=== PATIENT | female | born 1945 | race Caucasian/White ===

== ENCOUNTER 2018-03-24 13:52 | Inpatient (IN) ==
[2018-03-24] MEDS ORDERED: TEMAZEPAM 15 MG CAPSULE PO PRN (14:59)
[2018-03-24] MEDS ORDERED: ONDANSETRON 4 MG/2 ML VIAL IV PRN (15:01)
[2018-03-24] MEDS ORDERED: MORPHINE 4 MG/1 ML VIAL IV PRN (15:01)
[2018-03-24 15:26] LABS: Basophils # 0.1 10*3/uL (0.0-0.2); Basophils % 0.6 % (0.0-0.8); Eosinophils # 0.1 10*3/uL (0.0-0.87); Eosinophils % 1.3 % (0.00-10.9); Hematocrit 40.7 VOL% (35.7-47.0); Hemoglobin 13.8 GM/DL (12.0-16.0); Immature Granulocytes % 0.4 %; Immature Granulocytes Absolute 0.03 #; Lymphocytes # 3.2 10*3/uL (1.4-4.0); Lymphocytes % 38.7 % (21.3-54.2); Mean Corpuscular HGB Conc 33.9 GM/DL (32-36); Mean Corpuscular Hemoglobin 33 PG (27-34); Mean Corpuscular Volume 96.9 FL (87-102); Mean Platelet Volume 10.7 FL (9.6-12.0); Monocytes # 0.8 10*3/uL (0.11-0.8); Monocytes % 9.4 % (1.7-12.7); Neutrophils # 4.1 10*3/uL (1.4-7.4); Neutrophils % 49.6 % (38.7-73.9); Platelet Count 248 T/CUMM (130-400); Red Cell Distribution Width 12.7 % (9.3-17.3); White Blood Count 8.2 T/CUMM (4-12)
[2018-03-24 15:46] LABS: Calcium 8.5 MG/DL (8.5-10.1); Osmolality,Calculated 285.1 MOS/KG (273-304); Potassium 4.1 MMOL/L (3.5-5.1)
[2018-03-24] MEDS: LACTATED RINGERS 1,000 ML IV SCH (16:36)
[2018-03-24] MEDS ORDERED: LACTULOSE 20 GM/30 ML UDCUP PO PRN (16:37)
[2018-03-24] MEDS ORDERED: PROMETHAZINE 25 MG/1 ML VIAL IM PRN (16:37)
[2018-03-24] MEDS ORDERED: BISACODYL 5 MG TABLET PO PRN (16:37)
[2018-03-24] MEDS ORDERED: NITROGLYCERIN SL 0.4 MG TABLET SL PRN (16:40)
[2018-03-24] MEDS ORDERED: DEXTROSE 50% 25 GM/50 ML VIAL IV PRN (16:41)
[2018-03-24] MEDS ORDERED: GLUCAGON 1 MG VIAL IM PRN (16:41)
[2018-03-24] MEDS ORDERED: PROMETHAZINE 25 MG TABLET PO PRN (16:47)
[2018-03-24 17:16] LABS: Thyroid Stimulating Hormone 2.83 uIU/ml (0.358-3.74)
[2018-03-24] MEDS: PANTOPRAZOLE 40 MG TABLET PO SCH (17:50)
[2018-03-24] MEDS ORDERED: FLUTICASONE BOTH NARES SCH (21:00)
[2018-03-24] MEDS ORDERED: AZELASTINE BOTH NARES SCH (21:00)
[2018-03-24] MEDS: INSULIN LISPRO 100 UNIT/ML SUBCUT SCH (21:12)
[2018-03-24] MEDS: cycloSPORINE OPH EMUL 1 VIAL BOTH EYES SCH (21:30)
[2018-03-24] MEDS: lamoTRIgine 25 MG TABLET PO SCH (21:31)
[2018-03-24] MEDS: GABAPENTIN 100 MG CAPSULE PO SCH (21:31)
[2018-03-24] MEDS: ISOSORBIDE DINITRATE 10 MG TABLET PO SCH (21:31)
[2018-03-24] MEDS: DOCUSATE SODIUM 100 MG CAPSULE PO SCH (21:31)
[2018-03-24] MEDS: BENZONATATE 100 MG CAPSULE PO SCH (21:31)
[2018-03-25 05:13] LABS: Basophils # 0.1 10*3/uL (0.0-0.2); Basophils % 0.8 % (0.0-0.8); Eosinophils # 0.1 10*3/uL (0.0-0.87); Eosinophils % 2.1 % (0.00-10.9); Hematocrit 35.4 VOL% (35.7-47.0); Hemoglobin 11.4 GM/DL (12.0-16.0); Immature Granulocytes % 0.3 %; Immature Granulocytes Absolute 0.02 #; Lymphocytes # 2.9 10*3/uL (1.4-4.0); Lymphocytes % 44.9 % (21.3-54.2); Mean Corpuscular HGB Conc 32.2 GM/DL (32-36); Mean Corpuscular Hemoglobin 32 PG (27-34); Mean Platelet Volume 10.8 FL (9.6-12.0); Monocytes # 0.6 10*3/uL (0.11-0.8); Monocytes % 8.9 % (1.7-12.7); Neutrophils # 2.8 10*3/uL (1.4-7.4); Platelet Count 217 T/CUMM (130-400); Red Blood Count 3.54 MC/CUMM (3.8-5.5); Red Cell Distribution Width 12.6 % (9.3-17.3); White Blood Count 6.5 T/CUMM (4-12)
[2018-03-25] MEDS ORDERED: DIAZEPAM 5 MG TABLET PO ONE (05:30)
[2018-03-25] MEDS ORDERED: FAMOTIDINE 20 MG TABLET PO ONE (05:30)
[2018-03-25 05:34] LABS: Albumin 3.4 G/DL (3.4-5.0); Bilirubin,Total 0.7 MG/DL (0.2-1.0); Calcium 8.1 MG/DL (8.5-10.1); Potassium 4.1 MMOL/L (3.5-5.1); Total Protein 6.1 G/DL (6.4-8.3)
[2018-03-25] MEDS: LEVOTHYROXINE 112 MCG TABLET PO SCH (06:24)
[2018-03-25] MEDS ORDERED: CLINDAMYCIN INJ 900 MG in PREMIX 1 EACH IV ONE (06:30)
[2018-03-25] MEDS ORDERED: BUPIVACAINE SPINAL 0.75% 2 ML AMP SPINAL ONE (06:47)
[2018-03-25] MEDS ORDERED: traMADol 50 MG TABLET PO PRN (07:22)
[2018-03-25] MEDS ORDERED: ROPIVACAINE 0.5% 30 ML VIAL ONE (08:26)
[2018-03-25] MEDS ORDERED: LIDOCAINE 2% 20 ML VIAL ONE (08:26)
[2018-03-25] MEDS ORDERED: MAGNESIUM HYDROXIDE SUSP 30 ML UDCUP PO PRN (08:34)
[2018-03-25] MEDS ORDERED: BISACODYL 10 MG SUPP RECTAL PRN (08:34)
[2018-03-25] MEDS ORDERED: ONDANSETRON 4 MG/2 ML VIAL IV PRN (08:55)
[2018-03-25] MEDS ORDERED: HYDROmorphone 2 MG/1 ML VIAL IV PRN (08:55)
[2018-03-25] MEDS ORDERED: NON-FORMULARY MEDICATION (Glycopyrrolate/Formoterol Fum [Bevespi Aerosphere Inhaler] 2 PUF INH SCH (09:00)
[2018-03-25] MEDS ORDERED: NON-FORMULARY MEDICATION (Esomeprazole Magnesium [Nexium] 40 MG) PO SCH (09:00)
[2018-03-25] MEDS ORDERED: ACETAMINOPHEN 1,000 MG/100 ML VIAL IV ONE (09:03)
[2018-03-25] MEDS ORDERED: PHENYLEPHRINE 1 MG/10 ML SYRINGE IV ONE (09:03)
[2018-03-25] MEDS ORDERED: PROPOFOL 200 MG/20 ML VIAL IV ONE (09:03)
[2018-03-25] MEDS ORDERED: SEVOFLURANE 1 UNIT/15 MINUTE INH ONE (09:03)
[2018-03-25] MEDS ORDERED: MIDAZOLAM 2 MG/2 ML VIAL ONE (09:03)
[2018-03-25] MEDS ORDERED: fentaNYL 100 MCG/2 ML VIAL ONE (09:03)
[2018-03-25] MEDS: DARIFENACIN HYDROBROMIDE 15 MG PO SCH (09:14)
[2018-03-25] MEDS: DOCUSATE SODIUM 100 MG CAPSULE PO SCH ×2 (09:14→21:30)
[2018-03-25] MEDS: INSULIN LISPRO 100 UNIT/ML SUBCUT SCH ×4 (09:14→21:28)
[2018-03-25] MEDS: BENZONATATE 100 MG CAPSULE PO SCH ×3 (09:15→21:30)
[2018-03-25] MEDS: METOPROLOL SUCCINATE XL 25 MG TABLET PO SCH (09:15)
[2018-03-25] MEDS: GABAPENTIN 100 MG CAPSULE PO SCH ×3 (09:15→21:29)
[2018-03-25] MEDS: THEOPHYLLINE ER 300 MG TABLET PO SCH ×2 (09:15→21:29)
[2018-03-25] MEDS: lamoTRIgine 25 MG TABLET PO SCH ×2 (09:15→21:29)
[2018-03-25] MEDS: cycloSPORINE OPH EMUL 1 VIAL BOTH EYES SCH ×2 (09:15→21:42)
[2018-03-25] MEDS: MONTELUKAST 10 MG TABLET PO SCH (09:15)
[2018-03-25] MEDS: PANTOPRAZOLE 40 MG TABLET PO SCH (09:15)
[2018-03-25] MEDS: ISOSORBIDE DINITRATE 10 MG TABLET PO SCH ×3 (09:15→21:29)
[2018-03-25] MEDS: MORPHINE 4 MG/1 ML VIAL IV PRN ×3 (11:27→21:36)
[2018-03-25] MEDS: CLINDAMYCIN INJ 900 MG in PREMIX 1 EACH IV SCH ×2 (16:09→22:31)
[2018-03-25] MEDS: BACITRACIN OINT 0.9 GM PACK TOP SCH (16:09)
[2018-03-25] MEDS ORDERED: ROSUVASTATIN 10 MG TABLET PO SCH (21:00)
[2018-03-26] MEDS: LEVOTHYROXINE 112 MCG TABLET PO SCH (07:08)
[2018-03-26] MEDS: MORPHINE 4 MG/1 ML VIAL IV PRN (07:23)
[2018-03-26] MEDS: LACTATED RINGERS 1,000 ML IV SCH ×2 (07:45→11:30)
[2018-03-26] MEDS: INSULIN LISPRO 100 UNIT/ML SUBCUT SCH ×2 (07:45→11:30)
[2018-03-26 08:23] VITALS: BP 123/58
[2018-03-26 08:25] LABS: Basophils % 0.6 % (0.0-0.8); Eosinophils # 0.1 10*3/uL (0.0-0.87); Eosinophils % 1.6 % (0.00-10.9); Hematocrit 36.2 VOL% (35.7-47.0); Immature Granulocytes % 0.3 %; Immature Granulocytes Absolute 0.02 #; Lymphocytes # 2.2 10*3/uL (1.4-4.0); Lymphocytes % 31.2 % (21.3-54.2); Mean Corpuscular HGB Conc 33.1 GM/DL (32-36); Mean Corpuscular Hemoglobin 33 PG (27-34); Mean Corpuscular Volume 98.9 FL (87-102); Mean Platelet Volume 10.3 FL (9.6-12.0); Monocytes # 0.6 10*3/uL (0.11-0.8); Monocytes % 8.5 % (1.7-12.7); Neutrophils # 4.1 10*3/uL (1.4-7.4); Neutrophils % 57.8 % (38.7-73.9); Platelet Count 217 T/CUMM (130-400); Red Blood Count 3.66 MC/CUMM (3.8-5.5); Red Cell Distribution Width 12.5 % (9.3-17.3); White Blood Count 7.1 T/CUMM (4-12)
[2018-03-26 08:48] LABS: Calcium 8.1 MG/DL (8.5-10.1); Osmolality,Calculated 278.4 MOS/KG (273-304); Potassium 3.8 MMOL/L (3.5-5.1)
[2018-03-26] MEDS ORDERED: KETOROLAC 30 MG/1 ML VIAL IV ONE (08:55)
[2018-03-26] MEDS ORDERED: METHOCARBAMOL 500 MG TABLET PO PRN (08:56)
[2018-03-26] MEDS: BACITRACIN OINT 0.9 GM PACK TOP SCH (09:14)
[2018-03-26] MEDS: METOPROLOL SUCCINATE XL 25 MG TABLET PO SCH (09:15)
[2018-03-26] MEDS: GABAPENTIN 100 MG CAPSULE PO SCH (09:16)
[2018-03-26] MEDS: BENZONATATE 100 MG CAPSULE PO SCH (09:16)
[2018-03-26] MEDS: MONTELUKAST 10 MG TABLET PO SCH (09:16)
[2018-03-26] MEDS: THEOPHYLLINE ER 300 MG TABLET PO SCH (09:16)
[2018-03-26] MEDS: ISOSORBIDE DINITRATE 10 MG TABLET PO SCH (09:17)
[2018-03-26] MEDS: lamoTRIgine 25 MG TABLET PO SCH (09:17)
[2018-03-26] MEDS: PANTOPRAZOLE 40 MG TABLET PO SCH (09:17)
[2018-03-26] MEDS: DARIFENACIN HYDROBROMIDE 15 MG PO SCH (09:24)
[2018-03-26] MEDS: DOCUSATE SODIUM 100 MG CAPSULE PO SCH (09:24)
[2018-03-26] MEDS: cycloSPORINE OPH EMUL 1 VIAL BOTH EYES SCH (09:25)
== END 2018-03-26 12:30 | disposition home health service (06) | DRG 517 ==
LOC: N.3E → EDSTATUS 13:52 → OBSVTOIN 13:54
PROVIDERS: ADMIT Orthopaedic Surgery; ATTEND Orthopaedic Surgery